=== PATIENT | female | born 1970 | race Caucasian/White ===

== ENCOUNTER 2018-05-16 05:31 | Emergency (ER) | payer OTHER ==
[~2018-05-16] VITALS: Ht 167.6 cm; Wt 63.5 kg
--- NOTE | ~2018-05-16 | PROC ---
[address] [address] PROCEDURE REPORT Name: KAL COTTO Room: [facility] Eddi#: [id number] Admission: 05/16/18 Attend Phys: Discharge: 05/16/18 Date of : 68 Report #: [id number] THIS REPORT FOR: //name// For GI report, please see the Provation report in Perceptive 7 content. By: 1350Medical Records Staff ISAIAS /OZIEL
[~2018-05-16 05:31] MED LIST: AZITHROMYC200 MG/51 PO; CIPROFLOXACIN500 M1 PO; DIFLUCAN150 MG PO; NOHOMEMEDICATIONS; PHENAZOPYRIDIN200 M2 PO; PYRIDIUM200 MG PO
[2018-05-16 07:16] LABS: ABSOLUTE EOSINOPHILS 0.3 thou/uL (0.0-0.7); ABSOLUTE LYMPHOCYTES 1.6 thou/uL (0.8-5.3); ABSOLUTE MONOCYTES 0.3 thou/uL (0.0-1.2); ABSOLUTE NEUTROPHILS 2.4 thou/uL (1.6-8.1); BASOPHILS 0.8 %; EOSINOPHILS 6.4 %; HEMATOCRIT 40.5 % (37.0-47.0); HEMOGLOBIN 13.5 gm/dL (12.0-15.0); LYMPHOCYTES 33.9 %; MCH 31.7 pg (26.0-34.0); MCHC 33.4 g/dL (28.0-37.0); MCV 94.9 fL (80.0-100.0); MONOCYTES 6.5 %; MPV 7.7 fl. (7.2-11.1); NUCLEATED RBCS 0 /100WBC; PLATELET COUNT* 294 thou/uL (150-400); POLYS 52.4 %; RBC 4.27 mil/uL (4.20-5.00); RDW-CV 12.8 % (10.5-14.5); WBC 4.7 thou/uL (4.0-11.0)
[2018-05-16 07:18] LABS: CALCIUM 8.3 mg/dL (8.5-10.1); POTASSIUM 3.1 mmol/L (3.5-5.1)
[2018-05-16 07:20] VITALS: BP 131/79
--- NOTE | 2018-05-19 08:09 | PATH ---
[address] [address] PATHOLOGY RPT PROCEDURE Name: KAL COTTO Room: [facility] Eddi#: [id number] Admission: 05/16/18 Date of : 68 Discharge: 05/16/18 Report #: [id number] Path Case #: [id number] [facility] Accession Number: [id number] . 01 Material submitted: . PART A: ESOPHAGEAL BIOPSY PART B: PROXIMAL ESOPHAGEAL BIOPSY . 01 Clinical history: . Foreign body, rule out eosinophilic esophagitis . 02 Diagnosis: A and B: Esophageal biopsy and proximal esophageal biopsy: - Characteristic of eosinophilic esophagitis. See comment. (LUCÍA:moody; 05/17/2018) QMS/05/17/2018 . 02 Comment: Both biopsies reveal benign esophageal mucosa having an eosinophilic inflammatory infiltrate averaging greater than 30 per high power field and the "esophagus biopsy" (A) also shows prominent basilar cell hyperplasia. (LUCÍA:moody; 05/17/2018) . 02 Electronically signed: . Ebenezer Olmos MD, Pathologist NPI- [id number] . 01 Gross description: . A. Received in formalin labeled "Kal Jacob, esophagus BX" is a 0.2 cm translucent tissue fragment which is entirely submitted as A1. . B. Received in formalin labeled "Kal Jacob, proximal esophageal BX" is a 0.3 cm translucent tissue fragment which is entirely submitted as B1. (PHOEBE; 05/16/2018) JBR/JBR . 02 Pathologist provided ICD-10: K20.0 . 02 CPT . 469133, 913978 Performed at: [address] [id number] MD Ravindra Polanco MD Phone: [phone] Performed at: [address] [id number] [place] [address] PATHOLOGY RPT PROCEDURE Name: KAL COTTO Room: [facility] NEREIDA Montague#: [id number] Admission: 05/16/18 Date of : 68 Discharge: 05/16/18 Report #: [id number] Path Case #: [id number] MD Ebenezer Olmos MD Phone: [phone]
== END 2018-05-16 07:21 | disposition still patient (30) ==
LOC: M.ERS 05:31
PROVIDERS: Emergency Medicine
DX: T18.128A Food in esophagus causing other injury, initial encounter (principal); Z87.440 Personal history of urinary (tract) infections; X58.XXXA Exposure to other specified factors, initial encounter; Y93.89 Activity, other specified; Y92.89 Other specified places as the place of occurrence of the external cause; Y99.8 Other external cause status

== ENCOUNTER 2020-01-12 14:20 | Emergency (ER) | payer OTHER ==
[~2020-01-12] VITALS: Ht 170.2 cm; Wt 61.2 kg
--- NOTE | ~2020-01-12 | PROC ---
[address] [address] PROCEDURE REPORT Name: KAL COTTO [id number] Admission: 01/12/20 Attend Phys: Discharge: 01/12/20 Date of : 68 Report #: [id number] THIS REPORT FOR: //name// cc: FAM - No family physician/PCP FAM - No family physician/PCP ~ THIS REPORT FOR: //name// For GI report, please see the Provation report in Perceptive 7 content. By: 1032Medical Records Staff ISAIAS /OZIEL
[2020-01-12 15:03] LABS: ABSOLUTE BASOPHILS 0.1 thou/uL (0.0-0.2); ABSOLUTE EOSINOPHILS 0.4 thou/uL (0.0-0.7); ABSOLUTE LYMPHOCYTES 1.9 thou/uL (0.8-5.3); ABSOLUTE MONOCYTES 0.3 thou/uL (0.0-1.2); ABSOLUTE NEUTROPHILS 6.1 thou/uL (1.6-8.1); EOSINOPHILS 4.7 %; HEMOGLOBIN 14.9 gm/dL (12.0-15.0); MCH 32.8 pg (26.0-34.0); MCHC 33.9 g/dL (28.0-37.0); MCV 96.7 fL (80.0-100.0); MONOCYTES 3.9 %; MPV 7.7 fl. (7.2-11.1); NUCLEATED RBCS 0 /100WBC; PLATELET COUNT* 294 thou/uL (150-400); POLYS 69.4 %; RBC 4.55 mil/uL (4.20-5.00); RDW-CV 12.7 % (10.5-14.5); WBC 8.8 thou/uL (4.0-11.0)
[2020-01-12 15:11] LABS: CALCIUM 8.3 mg/dL (8.5-10.1); POTASSIUM 3.9 mmol/L (3.5-5.1)
[2020-01-12 15:16] LABS: TOTAL BILIRUBIN 0.5 mg/dL (<0.1-1.0); TOTAL PROTEIN 7.5 g/dL (6.4-8.2)
[2020-01-12 16:08] LABS: APTT 29.1 Seconds (25.0-31.3); INR 1.1; PROTIME 11.1 Seconds (9.20-11.50)
[2020-01-12 16:14] VITALS: BP 135/86
--- NOTE | 2020-01-13 10:23 | EKG ---
[place] [address] ELECTROCARDIOGRAM REPORT Name: KAL COTTO Room: [facility]#: [id number] Admission: 01/12/20 Attend Phys: Discharge: 01/12/20 Date of : 68 Date of Service: 01/12/20 1455 Report #: [id number] THIS REPORT FOR: //name// [facility] ED Test Date: 2020-01-12 Test Time: 14:55:26 Pat Name: KAL COTTO Department: Room: Gender: F Hotel Night Auditor: JENNIFER : 1970 Requested By: Cristiana Anand Order Number: [id number] MD: Ehsan Zapata Measurements Intervals [place] Rate: 77 P: 76 SD: 152 QRS: 69 QRSD: 82 T: 56 QT: 390 QTc: 442 Interpretive Statements Sinus rhythm Baseline wander in lead(s) III,aVL,aVF No previous ECG available for comparison Electronically Signed On 01-13-2020 10:21:49 CDT by Ehsan Zapata [email or web address] <ELECTRONICALLY SIGNED> By: Keaton Zapata MD, [facility] 01/13/20 1021 1455 1455 Keaton Zapata MD, [facility] /EPI
--- NOTE | 2020-01-15 13:08 | PATH ---
[place] [address] PATHOLOGY RPT PROCEDURE Name: KAL JAMES Room: [facility] Eddi#: [id number] Admission: 01/12/20 Date of : 68 Discharge: 01/12/20 Report #: [id number] Path Case #: [id number] [facility] Accession Number: [id number] . 01 Material submitted: . PART A: esophagus - ESOPHAGEAL BIOPSY AT 35 CM. Modifiers: 35CM PART B: esophagus - ESOPHAGEAL BIOPSY AT 30CM. Modifiers: 30 CM . 01 Clinical history: . Foreign body . 02 Diagnosis: A and B: Esophageal biopsy at 35 cm and at 30 cm: - Moderate chronic esophagitis compatible with reflux, and with prominence of eosinophils suggesting eosinophilic (allergic) esophagitis. See comment. (LUCÍA:moody; 01/15/2020) S 01/15/2020 1109 Local . 02 Comment: Both of the biopsies show similar features with benign esophageal mucosa including some which is minimally inflamed and showing very few eosinophils as well as other fragments showing prominent basilar cell hyperplasia with variable numbers of eosinophils ranging from 5 to 30 per high power field. No surface aggregation or layering of eosinophils is seen. The number of eosinophils are at the upper limits of those seen with reflux and the histologic findings, along with the clinical history raises the question of eosinophilic (allergic) esophagitis. (LUCÍA:moody; 01/15/2020) . 02 Electronically signed: . Ebenezer Olmos MD, Pathologist NPI- [id number] . 01 Gross description: . A. The specimen is received in formalin labeled "Kal James, esophageal biopsy at 35 cm" and consists of 2 fragments of white-chawla tissue measuring 0.4 x 0.1 x 0.1 cm and 0.6 x 0.2 x 0.1 cm which are entirely submitted in A1. . B. The specimen is received in formalin labeled "JacobCristela villedaita, esophageal biopsy at 30 cm" and consists of a fragment of white-chawla tissue measuring 0.6 x 0.2 x 0.2 cm which is entirely submitted in B1. (JM; 01/14/2020) JFQ/JFQ 01/14/2020 1341 Local . 02 Pathologist provided ICD-10: K20.9 [place] [address] PATHOLOGY RPT PROCEDURE Name: KAL JAMES [id number] Admission: 01/12/20 Date of : 68 Discharge: 01/12/20 Report #: [id number] Path Case #: [id number] . 02 CPT . 099100, 121771 Specimen Comment: A courtesy copy of this report has been sent to [phone] Specimen Comment: Report sent to Performed at: [address], [place], [place] [id number] MD Ravindra Polanco MD Phone: [phone] Performed at: 02 [facility] [address], [place], [place] [id number] MD Ebenezer Olmos MD Phone: [phone]
== END 2020-01-12 16:15 | disposition still patient (30) ==
LOC: M.GI 14:20 → M.ERS 14:20
PROVIDERS: Physician Assistant
DX: T17.298A Other foreign object in pharynx causing other injury, initial encounter (principal); K22.2 Esophageal obstruction; Z87.440 Personal history of urinary (tract) infections; X58.XXXA Exposure to other specified factors, initial encounter; Y93.89 Activity, other specified; Y92.89 Other specified places as the place of occurrence of the external cause; Y99.8 Other external cause status